=== PATIENT | female | born 1985 | race Caucasian/White ===

== ENCOUNTER 2018-06-08 16:14 | Inpatient (IN) | payer OTHER ==
[~2018-06-08] VITALS: Ht 165.1 cm; Wt 71.7 kg
[2018-06-08] MEDS ORDERED: SERT20OR PO (16:31)
[2018-06-08] MEDS ORDERED: SODIUM CHLORIDE 0.9% 1,000 ML IV ONE ×3 (17:20→23:00)
[2018-06-08] MEDS ORDERED: ONDANSETRON HCL 4MG/2ML INJ IV STA (17:20)
[2018-06-08] MEDS ORDERED: FAMOTIDINE 20MG/2ML VIAL IV STA (17:20)
[2018-06-08] MEDS ORDERED: MORPHINE SULFATE 4 MG/ML CPJ (NOT FOR IM USE) IV STA (17:20)
[2018-06-08] MEDS ORDERED: KETOROLAC 30MG/ML VIAL IV ONE (17:30)
[2018-06-08 19:15] LABS: CHLORIDE 104 mEq/L (98-107)
[2018-06-08 19:18] LABS: HEMATOCRIT. 45.8 % (36.0-48.0); HEMOGLOBIN. 15.6 g/dL (12.0-16.0); MEAN CORPUSCULAR HEMOGLOBIN 30.8 pg (28.0-32.0); MEAN CORPUSCULAR VOLUME 90.2 fL (81.0-99.0); MEAN PLATELET VOLUME 8.6 fl (7.4-10.4); PLATELET 398 x1000/uL (130-400); RED BLOOD CELL COUNT 5.07 mill/uL (4.2-5.4); RED CELL DISTRIBUTION WIDTH 14.1 % (11.6-14.6)
[2018-06-08 19:19] LABS: PROTHROMBIN TIME 10.7 sec (9.6-11.0)
[2018-06-08 19:26] LABS: B-HCG QUANTITATIVE < 1 mIU/mL (<3)
[2018-06-08 19:48] LABS: PLATELET ESTIMATE NORMAL
[2018-06-08] MEDS ORDERED: CEFTRIAXONE 1 G PREMIX 50 ML IV ONE (21:00)
[2018-06-08] MEDS ORDERED: METRONIDAZOLE 500 MG PREMIX 100 ML IV ONE (21:00)
[2018-06-08] MEDS ORDERED: LORAZEPAM 2MG/ML CPJ IV ONE (23:00)
[2018-06-08] MEDS ORDERED: MORPHINE SULFATE 4 MG/ML CPJ (NOT FOR IM USE) IV ONE (23:00)
[2018-06-09] VITALS (13 sets, daily range): BP systolic 129–153; BP diastolic 73–95
[2018-06-09] MEDS ORDERED: PREN-142 MT (02:15)
[2018-06-09] MEDS ORDERED: LACT1CAP68 MT ×2 (02:17)
[2018-06-09] MEDS ORDERED: MAGN400C MT (02:17)
[2018-06-09] MEDS: ONDANSETRON HCL 4MG/2ML INJ IV PRN (03:46)
[2018-06-09] MEDS: HYDROMORPHONE HCL/PF 2MG/ML CPJ IV PRN ×7 (03:48→20:15)
[2018-06-09] MEDS: DEXT 5%/0.45% NACL KCL 10MEQ/L 1,000 ML IV SCH ×3 (05:02→22:12)
[2018-06-09] MEDS: PIPERACILLIN/TAZ 3.375G PREMIX 50 ML IV SCH ×2 (12:56→20:14)
[2018-06-09 13:37] LABS: HEMATOCRIT. 46.7 % (36.0-48.0); MEAN CORPUSCULAR VOLUME 90.6 fL (81.0-99.0); PLATELET 325 x1000/uL (130-400); RED BLOOD CELL COUNT 5.15 mill/uL (4.2-5.4); RED CELL DISTRIBUTION WIDTH 14.1 % (11.6-14.6)
[2018-06-09 13:46] LABS: INR 1.2; PARTIAL THROMBOPLASTIN TIME 27.5 sec (23.4-31.0)
[2018-06-09 13:48] LABS: CHLORIDE 110 mEq/L (98-107)
[2018-06-09 13:59] LABS: PLATELET ESTIMATE NORMAL
[2018-06-09 14:28] LABS: HEPATITIS B SURFACE ANTIGEN NEGATIVE
[2018-06-09 15:17] LABS: HEPATITIS A AB IGM NEGATIVE (NEGATIVE)
[2018-06-10] VITALS (12 sets, daily range): BP systolic 118–155; BP diastolic 55–87
[2018-06-10] MEDS: HYDROMORPHONE HCL/PF 2MG/ML CPJ IV PRN ×9 (00:15→21:02)
[2018-06-10] MEDS: PIPERACILLIN/TAZ 3.375G PREMIX 50 ML IV SCH ×3 (03:52→21:01)
[2018-06-10 06:15] LABS: HEMATOCRIT. 43.8 % (36.0-48.0); HEMOGLOBIN. 14.8 g/dL (12.0-16.0); MEAN CORPUSCULAR HEMOGLOBIN 30.9 pg (28.0-32.0); MEAN CORPUSCULAR VOLUME 91.3 fL (81.0-99.0); MEAN PLATELET VOLUME 8.1 fl (7.4-10.4); PLATELET 297 x1000/uL (130-400); RED CELL DISTRIBUTION WIDTH 14.2 % (11.6-14.6)
[2018-06-10] MEDS: DEXT 5%/0.45% NACL KCL 10MEQ/L 1,000 ML IV SCH ×3 (06:26→21:01)
[2018-06-10 06:38] LABS: CHLORIDE 107 mEq/L (98-107)
[2018-06-10 06:56] LABS: LDL CHOLESTEROL 48 mg/dL (5-100)
[2018-06-10 06:58] LABS: HDL CHOLESTEROL 30 mg/dL (40-59)
[2018-06-10 07:04] LABS: AMYLASE 941 IU/L (25-115)
[2018-06-10 09:20] LABS: PLATELET ESTIMATE NORMAL
[2018-06-10] MEDS: ACETAMINOPHEN 650MG SUPP PR PRN (23:05)
[2018-06-11] VITALS (12 sets, daily range): BP systolic 113–131; BP diastolic 67–78
[2018-06-11] MEDS: LORAZEPAM 2MG/ML CPJ IV PRN ×3 (00:45→18:08)
[2018-06-11] MEDS: PIPERACILLIN/TAZ 3.375G PREMIX 50 ML IV SCH ×3 (03:57→20:45)
[2018-06-11] MEDS: DEXT 5%/0.45% NACL KCL 10MEQ/L 1,000 ML IV SCH ×3 (03:57→18:07)
[2018-06-11] MEDS: HYDROMORPHONE HCL/PF 2MG/ML CPJ IV PRN ×7 (04:09→22:17)
[2018-06-11] MEDS: ACETAMINOPHEN 650MG SUPP PR PRN (05:51)
[2018-06-11 06:52] LABS: HEMATOCRIT. 39.1 % (36.0-48.0); HEMOGLOBIN. 13.4 g/dL (12.0-16.0); MEAN CORPUSCULAR HEMOGLOBIN 31.2 pg (28.0-32.0); MEAN CORPUSCULAR VOLUME 91.3 fL (81.0-99.0); MEAN PLATELET VOLUME 8.3 fl (7.4-10.4); PLATELET 247 x1000/uL (130-400); RED BLOOD CELL COUNT 4.28 mill/uL (4.2-5.4)
[2018-06-11 07:01] LABS: CHLORIDE 101 mEq/L (98-107)
[2018-06-11 07:20] LABS: AMYLASE 345 IU/L (25-115)
[2018-06-11 08:19] LABS: PLATELET ESTIMATE NORMAL
[2018-06-12] VITALS (16 sets, daily range): BP systolic 109–139; BP diastolic 64–97
[2018-06-12] MEDS: HYDROMORPHONE HCL/PF 2MG/ML CPJ IV PRN ×6 (02:16→21:47)
[2018-06-12] MEDS: LORAZEPAM 2MG/ML CPJ IV PRN ×2 (02:16→14:59)
[2018-06-12] MEDS: DEXT 5%/0.45% NACL KCL 10MEQ/L 1,000 ML IV SCH ×4 (02:22→20:43)
[2018-06-12] MEDS: PIPERACILLIN/TAZ 3.375G PREMIX 50 ML IV SCH ×3 (03:22→20:42)
[2018-06-12] MEDS ORDERED: IPRATROPIUM/ALBUTEROL 0.5-3(2.5)MG/3ML NEB HHN PRN (12:45)
[2018-06-12] MEDS: ACETAMINOPHEN 650MG SUPP PR PRN (23:22)
[2018-06-13] VITALS (7 sets, daily range): BP systolic 108–132; BP diastolic 68–81
[2018-06-13] MEDS: HYDROMORPHONE HCL/PF 2MG/ML CPJ IV PRN ×7 (00:24→21:52)
[2018-06-13] MEDS: DEXT 5%/0.45% NACL KCL 10MEQ/L 1,000 ML IV SCH ×4 (01:05→18:27)
[2018-06-13] MEDS: LORAZEPAM 2MG/ML CPJ IV PRN ×3 (01:55→20:08)
[2018-06-13] MEDS: PIPERACILLIN/TAZ 3.375G PREMIX 50 ML IV SCH ×3 (04:44→20:07)
[2018-06-13 06:41] LABS: BASOPHILS % 0.3 % (0.0-2.0); EOSINOPHILS % 0.9 % (0.0-5.0); HEMATOCRIT. 33.5 % (36.0-48.0); HEMOGLOBIN. 11.4 g/dL (12.0-16.0); LYMPHOCYTES % 8.7 % (20.0-50.0); MEAN CORPUSCULAR HEMOGLOBIN 30.9 pg (28.0-32.0); MEAN CORPUSCULAR VOLUME 90.9 fL (81.0-99.0); MONOCYTES % 10.1 % (2.0-8.0); PLATELET 302 x1000/uL (130-400); RED BLOOD CELL COUNT 3.68 mill/uL (4.2-5.4); RED CELL DISTRIBUTION WIDTH 13.5 % (11.6-14.6)
[2018-06-13 06:48] LABS: CHLORIDE 105 mEq/L (98-107)
[2018-06-13] MEDS: ACETAMINOPHEN 650MG SUPP PR PRN ×2 (06:52→16:47)
[2018-06-13 07:16] LABS: AMYLASE 104 IU/L (25-115)
[2018-06-13 09:15] LABS: CLARITY URINE CLEAR (CLEAR); COLOR URINE YELLOW (YELLOW); KETONES URINE NEGATIVE (NEGATIVE); LEUKOCYTE ESTERASE URINE NEGATIVE (NEGATIVE); NITRITE URINE NEGATIVE (NEGATIVE); OCCULT BLOOD URINE NEGATIVE (NEGATIVE); PH URINE 7.5 (4.5-8.0); PROTEIN URINE NEGATIVE (NEGATIVE); SPECIFIC GRAVITY URINE 1.005 (1.005-1.030); UROBILINOGEN URINE 0.2 E.U./dL (0.2-1.0)
[2018-06-13] MEDS ORDERED: ACETAMINOPHEN 325MG TABLET PO PRN (17:00)
[2018-06-14] VITALS: BP 123/85
[2018-06-14] MEDS: HYDROMORPHONE HCL/PF 2MG/ML CPJ IV PRN ×3 (01:03→20:28)
[2018-06-14] MEDS: PIPERACILLIN/TAZ 3.375G PREMIX 50 ML IV SCH ×4 (03:07→20:30)
[2018-06-14 04:00] VITALS: BP 117/77
[2018-06-14] MEDS: DEXT 5%/0.45% NACL KCL 10MEQ/L 1,000 ML IV SCH ×4 (04:17→20:25)
[2018-06-14] MEDS: LORAZEPAM 2MG/ML CPJ IV PRN ×3 (04:21→23:31)
[2018-06-14] MEDS ORDERED: HYDROMORPHONE HCL/PF 2MG/ML CPJ IV PRN (04:45)
[2018-06-14 06:27] LABS: BASOPHILS % 0.4 % (0.0-2.0); EOSINOPHILS % 1.6 % (0.0-5.0); HEMATOCRIT. 35.4 % (36.0-48.0); LYMPHOCYTES % 13.5 % (20.0-50.0); MEAN CORPUSCULAR HEMOGLOBIN 30.8 pg (28.0-32.0); MEAN PLATELET VOLUME 7.8 fl (7.4-10.4); MONOCYTES % 12.1 % (2.0-8.0); NEUTROPHILS % 72.4 % (40.0-76.0); PLATELET 364 x1000/uL (130-400); RED BLOOD CELL COUNT 3.89 mill/uL (4.2-5.4); RED CELL DISTRIBUTION WIDTH 13.5 % (11.6-14.6)
[2018-06-14 06:36] LABS: PROTHROMBIN TIME 10.7 sec (9.6-11.0)
[2018-06-14 06:58] LABS: CHLORIDE 106 mEq/L (98-107)
[2018-06-14] MEDS ORDERED: MORPHINE SULFATE 4 MG/ML CPJ (NOT FOR IM USE) IV PRN (07:00)
[2018-06-14 07:03] LABS: AMYLASE 97 IU/L (25-115)
[2018-06-14 08:20] VITALS: BP 119/74
[2018-06-14] MEDS ORDERED: SODIUM BICARBONATE 4% (2.4MEQ) 5ML VIAL IV ONE (11:20)
[2018-06-14 16:45] VITALS: BP 129/90
[2018-06-14] MEDS: ONDANSETRON HCL 4MG/2ML INJ IV PRN (18:07)
[2018-06-14 19:12] VITALS: BP 119/93
[2018-06-14 20:07] VITALS: BP 128/72
[2018-06-15] VITALS: BP 111/67
[2018-06-15] MEDS: HYDROMORPHONE HCL/PF 2MG/ML CPJ IV PRN ×2 (01:50→08:27)
[2018-06-15 04:46] VITALS: BP 111/75
[2018-06-15] MEDS: PIPERACILLIN/TAZ 3.375G PREMIX 50 ML IV SCH ×2 (05:57→11:45)
[2018-06-15] MEDS: DEXT 5%/0.45% NACL KCL 10MEQ/L 1,000 ML IV SCH (05:59)
[2018-06-15 06:27] LABS: BASOPHILS % 0.6 % (0.0-2.0); EOSINOPHILS % 1.5 % (0.0-5.0); HEMATOCRIT. 33.6 % (36.0-48.0); HEMOGLOBIN. 11.2 g/dL (12.0-16.0); LYMPHOCYTES % 19.3 % (20.0-50.0); MEAN CORPUSCULAR HEMOGLOBIN 30.5 pg (28.0-32.0); MEAN CORPUSCULAR VOLUME 91.3 fL (81.0-99.0); MEAN PLATELET VOLUME 7.9 fl (7.4-10.4); MONOCYTES % 14.2 % (2.0-8.0); NEUTROPHILS % 64.4 % (40.0-76.0); PLATELET 395 x1000/uL (130-400); RED BLOOD CELL COUNT 3.69 mill/uL (4.2-5.4); RED CELL DISTRIBUTION WIDTH 13.4 % (11.6-14.6)
[2018-06-15 07:27] LABS: CHLORIDE 107 mEq/L (98-107)
[2018-06-15 08:00] VITALS: BP 122/84
[2018-06-15] MEDS ORDERED: SERTRALINE HCL 25MG TABLET PO SCH (11:00)
[2018-06-15 12:00] VITALS: BP 130/79
[2018-06-15 12:03] VITALS: BP 130/79
== END 2018-06-15 13:40 | disposition home or self-care (01) | DRG 871 ==
LOC: ER 16:14 → 5EST 22:08 → ENRESERV 22:58 → UNDODISIN 06-11 20:03 → 6WST 06-13 01:28
PROVIDERS: ADMIT Hospitalist; ATTEND Hospitalist
PROC: 0W9B3ZZ Drainage of Left Pleural Cavity, Percutaneous Approach (ICD-10-PCS; principal; 2018-06-14)
DX: A41.9 Sepsis, unspecified organism (principal); J18.9 Pneumonia, unspecified organism; J96.00 Acute respiratory failure, unspecified whether with hypoxia or hypercapnia; K85.10 Biliary acute pancreatitis without necrosis or infection; J91.8 Pleural effusion in other conditions classified elsewhere; R18.8 Other ascites; K80.20 Calculus of gallbladder without cholecystitis without obstruction; E80.6 Other disorders of bilirubin metabolism; F32.9 Major depressive disorder, single episode, unspecified; F41.9 Anxiety disorder, unspecified; Z98.891 History of uterine scar from previous surgery; Z79.899 Other long term (current) drug therapy
CPT/HCPCS: 32555; 36415; 71045; 74176; 74181; 76604; 76705; 80048; 80061; 80076; 82040; 82150; 82248; 83615; 83735; 84702; 86705; 86709; 86803; 87340; 88108; 88312; 93970; 96374; 96375; 97161; 99285; C1893; J0696; J1170; J1885; J2060; J2270; J2405; J2543; J3490; J7030